=== PATIENT | male | born 2000 | race Caucasian/White ===

== ENCOUNTER 2023-01-09 17:20 | Emergency (ER) | payer OTHER, SELFPAY ==
[2023-01-09 17:32] VITALS: BP 150/97; PULSE 76; RESP 16; TEMP 36.6; O2SAT 98; BMI 25.8
--- NOTE | 2023-01-09 18:03 | ED.HEATRA ---
HPI - Head Injury <Jarad Ruggiero PA-C - Last Filed: 01/09/23 19:06> General Chief complaint: Head Injury Stated complaint: had a seizure last week/head pain since Time Seen by Provider: 01/09/23 17:36 History of Present Illness HPI Narrative: This is a 22-year-old male presents emergency department due to reported seizure-like activity approximately a week ago. He states that he did not lose consciousness but his ?legs and arms began shaking uncontrollably for about 30 seconds?. He did not report any postictal period, loss of consciousness, biting of the tongue, or urinary or bowel incontinence. He states that similar episodes have happened 2 other times within the last year. He is not have a primary care provider and has no formal diagnosis of any kind of seizures. He does not report any symptoms currently other than mild headache. Related Data Allergies Allergy/AdvReac Type Severity Reaction Status Date / Time No Known Drug Allergies Allergy Verified 01/09/23 17:34 Review of Systems <Jarad Ruggiero PA-C - Last Filed: 01/09/23 19:06> Review of Systems Narrative: GENERAL: Denies chills, fatigue, malaise, fever, sweats. HEENT: Denies sinus pain, ear pain, sore throat, difficulty swallowing, dizziness. RESPIRATORY: Denies dyspnea, cough, wheezing, hemoptysis, sputum. CARDIOVASCULAR: Denies chest pain, palpitations, orthopnea, edema, GASTROINTESTINAL: Denies nausea, vomiting, abdominal pain, diarrhea, constipation, melena. : Denies dysuria, frequency, incontinence, hematuria, urinary retention. MUSCULOSKELETAL: denies weakness, joint pain, or bony pain SKIN: Denies rash, skin lesions, or other NEUROLOGIC: Reports headache, Denies weakness, , numbness, change in speech, confusion, seizures, incoordination. PSYCHIATRIC: No concerning psychosocial issues. 12 point review of systems is negative except for those stated above Patient History <SHANAE Colby Last Filed: 01/09/23 19:06> Social History Smoking Status: Never smoker Smoking Status: Never smoker Substance Use Type: does not use Exam <SHANAE Colby Last Filed: 01/09/23 19:06> Narrative Exam Narrative: GENERAL: Well-developed patient, in mild distress. HEAD: Atraumatic. Normocephalic. EYES: Pupils equal round and reactive. Extraocular motions intact. No scleral icterus. No injection or drainage. ENT: Nose without bleeding, purulent drainage. Throat without erythema, tonsillar hypertrophy or exudate. Airway patent. NECK: Trachea midline. Non tender CARDIOVASCULAR: Regular rate and rhythm without murmurs, gallops, or rubs. RESPIRATORY: Clear to auscultation. Breath sounds equal bilaterally. No wheezes, rales, or rhonchi. GASTROINTESTINAL: Abdomen soft, non-tender, nondistended. EXTREMITIES: No edema or joint tenderness. BACK: Nontender without deformity or crepitance. No flank tenderness. NEURO: AOx3. Cranial nerves 2-12 intact SKIN: No rash or erythema of visible areas Initial Vital Signs Initial Vital Signs: Vital Signs Temperature 97.9 F 01/09/23 17:32 Pulse Rate 76 01/09/23 17:32 Respiratory Rate 16 01/09/23 17:32 Blood Pressure 150/97 H 01/09/23 17:32 Pulse Oximetry 98 01/09/23 17:32 Oxygen Delivery Method 01/09/23 17:32 <Yeimi Grove DO - Last Filed: 01/10/23 07:23> Initial Vital Signs Initial Vital Signs: Vital Signs Temperature 97.9 F 01/09/23 17:32 Pulse Rate 76 01/09/23 17:32 Respiratory Rate 16 01/09/23 17:32 Blood Pressure 150/97 H 01/09/23 17:32 Pulse Oximetry 98 01/09/23 17:32 Oxygen Delivery Method 01/09/23 17:32 Course <Jarad Ruggiero PA-C - Last Filed: 01/09/23 19:06> Orders Ordered: ED Orders 01/09/23 18:07 CT head/brain wo con Stat CBC Auto Diff [Complete Blood Count AUTO DIFF] Stat CMP [Comprehensive Metabolic Panel] Stat 01/09/23 18:08 Magnesium Stat Vital Signs Vital signs: Vital Signs - 8 hr 01/09/23 17:32 Temperature 97.9 F Pulse Rate 76 Respiratory Rate 16 Blood Pressure 150/97 H Pulse Oximetry 98 Oxygen Delivery Method Room Air <Yeimi Grove DO - Last Filed: 01/10/23 07:23> Orders Ordered: ED Orders 01/09/23 18:07 CT head/brain wo con Stat CBC Auto Diff [Complete Blood Count AUTO DIFF] Stat CMP [Comprehensive Metabolic Panel] Stat 01/09/23 18:08 Magnesium Stat Vital Signs Vital signs: Vital Signs - 8 hr 01/09/23 17:32 Temperature 97.9 F Pulse Rate 76 Respiratory Rate 16 Blood Pressure 150/97 H Pulse Oximetry 98 Oxygen Delivery Method Room Air MDM - Head Injury <Jarad Ruggiero PA-C - Last Filed: 01/09/23 19:06> Lab Data 01/09/23 18:24 01/09/23 18:24 Labs: Lab Results 01/09/23 01/09/23 01/09/23 Range/Units 18:24 18:24 18:24 WBC 11.8 H (4.5-11.0) X10^3/uL RBC 5.72 (4.5-5.9) X10^6/uL Hgb 16.9 (13.5-17.5) g/dL Hct 47.5 (41-53) % MCV 83.0 (80-100) fL MCH 29.6 (26-34) PG MCHC 35.6 (30-36) % RDW 12.9 (11.6-14.8) % Plt Count 245 (150-400) X10^3/uL Neut % (Auto) 71.9 (50-75) % Lymph % (Auto) 23.2 L (25-40) % [place] % (Auto) 4.0 (3-14) % Eos % (Auto) 0.5 L (2-4) % Baso % (Auto) 0.4 (0-2) % Neut # (Auto) 8500 H (9489-4283) /uL Lymph # (Auto) 2700 (2252-9819) /uL [place] # (Auto) 500 (0-900) /uL Eos # (Auto) 100 (0-450) /uL Baso # (Auto) 0 (0-100) /uL Sodium 140 (137-145) mmol/L Potassium 4.0 (3.4-5.1) mmol/L Chloride 102 (98-107) mmol/L Carbon Dioxide 26 (22-32) mmol/L BUN 12 (9-20) mg/dL Creatinine 0.84 (0.66-1.25) mg/dL Estimated GFR > 60 (>60) mL/min BUN/Creatinine Ratio 14.3 (6-22) Glucose 92 (70-100) mg/dL Calcium 9.4 (8.4-10.2) mg/dL Magnesium 2.1 (1.6-2.3) mg/dL Total Bilirubin 0.6 (0.2-1.3) mg/dL AST 25 (17-59) IU/L ALT 30 (<50) IU/L Alkaline Phosphatase 65 (38-126) U/L Total Protein 7.9 (6.3-8.2) g/dL Albumin 4.8 (3.5-5.0) g/dL Globulin 3.1 (1.7-4.1) g/dL Albumin/Globulin Ratio 1.5 (1.0-2.8) Imaging Data CT scan - head: Radiologist's Impression: [address] [address] [address] Scan Report Signed Patient: Hansel Cueto MR#: [id number] : 2000 Acct:[id number] Age/Sex: 22 / M Date of Service: 01/09/23 Loc: ED Accession Number: [id number] ?? Procedure: CT head/brain wo con Ordering Provider: Jarad Ruggiero P.A-C PROCEDURE:? CT HEAD/BRAIN WO CON ? INDICATIONS:? Reported seizure like activity ? TECHNIQUE:? Noncontrast 4.5 mm thick angled axial sections acquired from the foramen magnum to the vertex, with coronal and sagittal reformats.? For radiation dose reduction, the following was used:? automated exposure control, adjustment of mA and/or kV according to patient size.? ? COMPARISON:? None. ? FINDINGS:? Image quality:? Mild streak artifact can be seen through the skull base. ? CSF spaces:? Basal cisterns are patent.? No extra-axial fluid collections.? Ventricles are normal in size and shape.? ? Brain:? No midline shift.? No intracranial masses or hemorrhage.? Mayer-white matter interface is normal.? ? Skull and face:? Calvarium and visualized facial bones are intact, without suspicious lesions.? ? Sinuses:? Visualized sinuses and mastoids are clear.? ? ? IMPRESSION:? Normal noncontrast head CT.? ? Dictated by: Cliff Conde M.D. on 01/09/2023 at 17:40 ? ? Approved by: Cliff Conde M.D. on 01/09/2023 at 17:40 ? MDM Narrative Medical decision making narrative: MDM * differential diagnosis includes but not limited to pseudoseizures, seizure, electrolyte abnormality * Prior records reviewed: Patient has not been here in the past * My lab interpretation: Lab work shows no significant abnormalities * My imgaing interpretation: CT head unremarkable * Clinical Decision Rules/Scores evaluated: None * Independent discussions with: None ED Course: This is a 22-year-old male presents emergency department due to reported seizure-like activity, 3 episodes over the last year. CT head unremarkable and no electrolyte abnormalities that would cause any kind of seizure-like activity. Patient does not have any symptoms other than a mild headache currently. Recommended he follow up with primary care for possible Neurology referral for further evaluation if similar episodes continue. Unclear if true seizures or pseudoseizures based on history. Shared Decision Making: Discussed plan with patient who is agreeable with plan. Social Considerations: None Disposition: Discharged home <Yeimi Grove DO - Last Filed: 01/10/23 07:23> Lab Data Labs: Lab Results 01/09/23 01/09/23 01/09/23 Range/Units 18:24 18:24 18:24 WBC 11.8 H (4.5-11.0) X10^3/uL RBC 5.72 (4.5-5.9) X10^6/uL Hgb 16.9 (13.5-17.5) g/dL Hct 47.5 (41-53) % MCV 83.0 (80-100) fL MCH 29.6 (26-34) PG MCHC 35.6 (30-36) % RDW 12.9 (11.6-14.8) % Plt Count 245 (150-400) X10^3/uL Neut % (Auto) 71.9 (50-75) % Lymph % (Auto) 23.2 L (25-40) % [place] % (Auto) 4.0 (3-14) % Eos % (Auto) 0.5 L (2-4) % Baso % (Auto) 0.4 (0-2) % Neut # (Auto) 8500 H (0637-3880) /uL Lymph # (Auto) 2700 (5405-7284) /uL [place] # (Auto) 500 (0-900) /uL Eos # (Auto) 100 (0-450) /uL Baso # (Auto) 0 (0-100) /uL Sodium 140 (137-145) mmol/L Potassium 4.0 (3.4-5.1) mmol/L Chloride 102 (98-107) mmol/L Carbon Dioxide 26 (22-32) mmol/L BUN 12 (9-20) mg/dL Creatinine 0.84 (0.66-1.25) mg/dL Estimated GFR > 60 (>60) mL/min BUN/Creatinine Ratio 14.3 (6-22) Glucose 92 (70-100) mg/dL Calcium 9.4 (8.4-10.2) mg/dL Magnesium 2.1 (1.6-2.3) mg/dL Total Bilirubin 0.6 (0.2-1.3) mg/dL AST 25 (17-59) IU/L ALT 30 (<50) IU/L Alkaline Phosphatase 65 (38-126) U/L Total Protein 7.9 (6.3-8.2) g/dL Albumin 4.8 (3.5-5.0) g/dL Globulin 3.1 (1.7-4.1) g/dL Albumin/Globulin Ratio 1.5 (1.0-2.8) Discharge Plan Departure Patient Disposition: Home Clinical Impression: Seizure-like activity Activity Restrictions/Additional Instructions: Thank you for coming to the [facility] Emergency Department today. Your CT head showed no brain abnormalities that would cause any kind of seizure-like activity. Your lab work also showed no electrolyte abnormalities that would explain your symptoms either. I recommend you establish with a primary care provider who will be able to do a more complete workup and possibly refer you to neurology for further brain testing if your symptoms continue. At this time there is no life-threatening cause of your symptoms. I hope you feel better soon. Stand Alone Forms: Patient Portal/API, Work Release Note <Yeimi Grove DO - Last Filed: 01/10/23 07:23> Cosign ED Attending Yoditature Attestation: I was immediately available in the department for consultation. Documentation has been reviewed.
--- NOTE | 2023-01-09 18:07 | DI.CT.S_ITS ---
PROCEDURE: CT HEAD/BRAIN WO CON INDICATIONS: Reported seizure like activity TECHNIQUE: Noncontrast 4.5 mm thick angled axial sections acquired from the foramen magnum to the vertex, with coronal and sagittal reformats. For radiation dose reduction, the following was used: automated exposure control, adjustment of mA and/or kV according to patient size. COMPARISON: None. FINDINGS: Image quality: Mild streak artifact can be seen through the skull base. CSF spaces: Basal cisterns are patent. No extra-axial fluid collections. Ventricles are normal in size and shape. Brain: No midline shift. No intracranial masses or hemorrhage. Mayer-white matter interface is normal. Skull and face: Calvarium and visualized facial bones are intact, without suspicious lesions. Sinuses: Visualized sinuses and mastoids are clear. IMPRESSION: Normal noncontrast head CT. Dictated by: Cliff Conde M.D. on 01/09/2023 at 17:40 Approved by: Cliff Conde M.D. on 01/09/2023 at 17:40
[2023-01-09 18:39] LABS: Add Manual Diff / Slide Review NO; Basophils Absolute Auto 0 /uL (0-100); Basophils Percent Auto 0.4 % (0-2); Eosinophils Absolute Auto 100 /uL (0-450); Eosinophils Percent Auto 0.5 % (2-4); Hematocrit 47.5 % (41-53); Hemoglobin 16.9 g/dL (13.5-17.5); Lymphocytes Absolute Auto 2700 /uL (1100-4500); Lymphocytes Percent Auto 23.2 % (25-40); Mean Corpuscular HGB Conc 35.6 % (30-36); Mean Corpuscular Hemoglobin 29.6 PG (26-34); Monocytes Absolute Auto 500 /uL (0-900); Neutrophils Absolute Auto 8500 /uL (1500-7000); Neutrophils Percent Auto 71.9 % (50-75); Platelet Count 245 X10^3/uL (150-400); Red Blood Cell Count 5.72 X10^6/uL (4.5-5.9); Red Cell Distribution Width 12.9 % (11.6-14.8); White Blood Cell Count 11.8 X10^3/uL (4.5-11.0)
[2023-01-09 18:44] LABS: Alanine Aminotransferase 30 IU/L (<50); Albumin 4.8 g/dL (3.5-5.0); Albumin Globulin Ratio 1.5 (1.0-2.8); Alkaline Phosphatase 65 U/L (38-126); Aspartate Aminotransferase 25 IU/L (17-59); BUN Creatinine Ratio 14.3 (6-22); Bilirubin Total 0.6 mg/dL (0.2-1.3); Blood Urea Nitrogen 12 mg/dL (9-20); Calcium 9.4 mg/dL (8.4-10.2); Carbon Dioxide 26 mmol/L (22-32); Chloride 102 mmol/L (98-107); Estimated Glomerular Filt Rate > 60 mL/min (>60); Globulin 3.1 g/dL (1.7-4.1); Glucose 92 mg/dL (70-100); HEMOLYSIS 23 (0-50); Sodium 140 mmol/L (137-145); Total Protein 7.9 g/dL (6.3-8.2)
[2023-01-09 19:00] LABS: Magnesium 2.1 mg/dL (1.6-2.3)
[2023-01-09 19:12] VITALS: BP 128/73; PULSE 69; O2SAT 97
--- NOTE | 2023-01-09 19:29 | PC.NURSE ---
Pt believes that he had a seizure last week and has a FORTE ever since then. Pt is alert/oriented at triage.
== END 2023-01-09 19:12 | disposition home or self-care (01) ==
PROVIDERS: Emergency Provider Physician Assistant Medical
DX: R56.9 Unspecified convulsions (principal); R51.9 Headache, unspecified
CPT/HCPCS: 36415; 70450; 80053; 83735; 85025; 99284